=== PATIENT | female | born 1985 | race Caucasian/White ===

== ENCOUNTER 2018-09-06 00:14 | Emergency (ER) | payer OTHER ==
[2018-09-06 00:36] LABS: BILIRUBIN,URINE NEGATIVE (NEGATIVE); GLUCOSE, URINE (UA) NEGATIVE (NEGATIVE); KETONES,URINE (UA) NEGATIVE (NEGATIVE); LEUKOCYTE ESTERASE, URINE TRACE (NEGATIVE); NITRITE,URINE NEGATIVE (NEGATIVE); OCCULT BLOOD,URINE LARGE (NEGATIVE); PROTEIN,URINE NEGATIVE (NEGATIVE); UROBILINOGEN,URINE 0.2 (NORMAL) E.U./dL (NORMAL)
[2018-09-06 00:44] LABS: CLARITY,URINE SL. CLOUDY (CLEAR); HCG UR QUAL NEGATIVE
[2018-09-06 00:45] LABS: BACTERIA,URINE Few /HPF (None Seen); RBC,URINE TNTC /HPF (0-5); SQUAMOUS EPITHELIAL CELL,UR MANY Squamous (<= Few)
[2018-09-06] MEDS ORDERED: SULFAM/TRIM 800/160 Prepack 2 PO ONE (01:13)
--- NOTE | 2018-09-06 01:16 | ED Physician Documentation ---
PD HPI FEMALE - Stated complaint Stated Complaint: FEMALE - Chief complaint Chief Complaint: Abd Pain - History obtained from History obtained from: Patient - History of Present Illness Timing - onset: How many days ago (5) Timing - duration: Days (5) Timing - details: Gradual onset, Still present Associated symptoms: Pelvic pain, Vaginal bleeding Contributing factors: Sexually active [employer] History: Miscarriage(s) (1) Similar symptoms before: Has not had sx before Recently seen: Clinic - Additional information Additional information: 32-year-old female who reports that she had a miscarriage in July was cleared to go back and action with intercourse after her follow-up appointment 1 week ago. She indicates that she had intercourse 1 week ago and the following day felt bruised she has had persistence of the symptoms since and she is now begin to have some vaginal bleeding she passed a small pea-sized hard object. She has some suprapubic pain and she feels bloated. Review of Systems Constitutional: denies: Fever Eyes: denies: Decreased vision Ears: denies: Ear pain Nose: denies: Rhinorrhea / runny nose, Congestion Throat: denies: Sore throat Respiratory: denies: Cough GI: reports: Abdominal Pain. denies: Nausea, Vomiting : denies: Dysuria, Frequency Skin: denies: Rash Musculoskeletal: denies: Neck pain, Back pain, Extremity pain Neurologic: denies: Generalized weakness, Focal weakness, Numbness PD PAST MEDICAL HISTORY - Present Medications Home Medications: Ambulatory Orders Medication Instructions Recorded Confirmed Sulfamethoxazole/Trimethoprim 1 each PO BID #10 tablet 09/06/18 [Sulfamethoxazole-Tmp Ds Tablet] - Allergies Allergies/Adverse Reactions: Allergies Allergy/AdvReac Type Severity Reaction Status Date / Time No Known Drug Allergies Allergy Verified 09/06/18 00:22 PD ED PE NORMAL - Vitals Vital signs reviewed: Yes (hypertensive) - General General: Alert and oriented X 3, No acute distress, Well developed/nourished - HEENT HEENT: Atraumatic, PERRL, EOMI - Neck Neck: Supple, no meningeal sign, No bony TTP - Cardiac Cardiac: RRR, No murmur - Respiratory Respiratory: No respiratory distress, Clear bilaterally - Abdomen Abdomen: Soft, Other (minimal suprapubic tenderness) - Back Back: No CVA TTP, No spinal TTP, Other (There is minimal tenderness at the right costal margin cant make peylo out of this pain ) - Derm Derm: Normal color, Warm and dry, No rash - Extremities Extremities: No deformity, No edema - Neuro Neuro: No motor deficit, No sensory deficit Eye Opening: Spontaneous Motor: Obeys Commands Verbal: Oriented GCS Score: 15 - Psych Psych: Normal mood, Normal affect Results - Vitals Vitals: Vital Signs - 24 hr 09/06/18 00:16 Temperature 36.8 C Heart Rate 100 Respiratory 18 Rate Blood Pressure 143/85 H O2 Saturation 100 Oxygen O2 Source Room air - Labs Labs: Laboratory Tests 09/06/18 00:28 Urine Color YELLOW Urine Clarity SL. CLOUDY Urine pH 6.0 Ur Specific [place] 1.010 Urine Protein NEGATIVE Urine Glucose (UA) NEGATIVE Urine Ketones NEGATIVE Urine Occult Blood LARGE H Urine Nitrite NEGATIVE Urine Bilirubin NEGATIVE Urine Urobilinogen 0.2 (NORMAL) Ur Leukocyte Esterase TRACE H Urine RBC TNTC H Urine WBC 11-25 H Ur Squamous Epith Cells MANY Squamous H Urine Bacteria Few Ur Microscopic Review INDICATED Urine Culture Comments NOT INDICATED Urine HCG, Qual NEGATIVE PD MEDICAL DECISION MAKING - ED course Complexity details: reviewed results, re-evaluated patient, considered differential, d/w patient ED course: There are no old records for review here today. The patient is a young 32-year-old female with suprapubic cramping and vaginal bleeding 2 months after miscarriage. On evaluation of the urinary sediment she appears to have urinary tract infection. She is administered sulfamethoxazole trimethoprim. Departure - Departure Disposition: 01 Home, Self Care Clinical Impression: Urinary tract infection Qualifiers: Urinary tract infection type: acute cystitis Hematuria presence: with hematuria Qualified Code(s): N30.01 - Acute cystitis with hematuria Instructions: ED UTI Cystitis Female Follow-Up: Forest Gregg ARNP [Primary Care Provider] - Prescriptions: Sulfamethoxazole/Trimethoprim [Sulfamethoxazole-Tmp Ds Tablet] 1 each PO BID #10 tablet
[2018-09-06 01:22] VITALS: BP 132/90
== END 2018-09-06 01:49 | disposition home or self-care (01) ==
LOC: ED 00:14
DX: N30.01 Acute cystitis with hematuria (principal)
CPT/HCPCS: 80053; 81001; 81003; 81025; 83690; 85025; 87086; 99282; 99283

== ENCOUNTER 2019-12-14 19:22 | Emergency (ER) | payer OTHER ==
[2019-12-14 19:30] VITALS: BP 160/88
[2019-12-14 19:49] LABS: BASOPHILS % (AUTO) 0.5 %; EOSINOPHILS # (AUTO) 0.1 10^3/uL (0.0-0.7); EOSINOPHILS % (AUTO) 0.8 %; HGB - HEMOGLOBIN 14.1 g/dL (12.0-16.0); LYMPHOCYTES # (AUTO) 3.2 10^3/uL (1.5-3.5); LYMPHOCYTES % (AUTO) 36.4 %; MEAN CORPUSCULAR HEMOGLOBIN 30.3 pg (27.0-31.0); MEAN CORPUSCULAR HGB CONC 33.8 g/dL (32.0-36.0); MEAN CORPUSCULAR VOLUME 89.7 fL (81.0-99.0); MEAN PLATELET VOLUME 9.4 fL (7.9-10.8); MONOCYTES # (AUTO) 0.8 10^3/uL (0.0-1.0); MONOCYTES % (AUTO) 9.2 %; NEUTROPHILS # (AUTO) 4.6 10^3/uL (1.5-6.6); NEUTROPHILS % (AUTO) 52.9 %; PLT - PLATELET COUNT 222 10^3/uL (130-450); RED BLOOD COUNT 4.65 10^6/uL (4.20-5.40); RED CELL DISTRIBUTION WIDTH 12.9 % (12.0-15.0); WHITE BLOOD COUNT 8.7 x10^3/uL (4.8-10.8)
--- NOTE | 2019-12-14 19:50 | ED Physician Documentation ---
History of Present Illness - Stated complaint Stated Complaint: RT SIDE/BACK PX - Chief complaint Chief Complaint: Abd Pain - History obtained from History obtained from: Patient - History of Present Illness Timing: Prior to arrival, Other (began 3 days ago) Pain level max: 5 Pain level now: 2 Quality: sharp, throbbing Radiates to: right lower quadrant - Additonal information Additional information: 34 year old female here with 3 days of right flank pain that now radiates to the RLQ. no n/v/d. no constipation denies dysuria, hematuria. denies fevers pt has had similar about 3 years ago in [place] where a CT scan was completed and they thought she may have stones. PSH: inguinal hernia repair in infancy pmh: negative meds: allergy meds only. no ocp Review of Systems Constitutional: denies: Fever, Chills Nose: denies: Rhinorrhea / runny nose Throat: denies: Sore throat Cardiac: denies: Chest pain / pressure, Palpitations Respiratory: denies: Dyspnea, Cough GI: reports: Abdominal Pain. denies: Nausea, Vomiting, Constipation, Diarrhea, Hematemesis, Bloody / black stool : reports: LMP (11/23/19). denies: Dysuria, Hesitancy, Unable to Void, Hematuria Musculoskeletal: reports: Reviewed and negative Neurologic: reports: Reviewed and negative Endocrine: denies: Polydypsia, Polyuria PD PAST MEDICAL HISTORY - Present Medications Home Medications: Ambulatory Orders Medication Instructions Recorded Confirmed Sulfamethoxazole/Trimethoprim 1 each PO BID #10 tablet 09/06/18 [Sulfamethoxazole-Tmp Ds Tablet] - Allergies Allergies/Adverse Reactions: Allergies Allergy/AdvReac Type Severity Reaction Status Date / Time azithromycin [From Zithromax] Allergy Respiratory Verified 12/14/19 19:26 codeine Allergy Emesis Verified 12/14/19 19:26 PD ED PE NORMAL - General General: Alert and oriented X 3, No acute distress, Well developed/nourished - HEENT HEENT: Atraumatic, PERRL - Neck Neck: No adenopathy - Cardiac Cardiac: No murmur - Respiratory Respiratory: No respiratory distress, Clear bilaterally - Abdomen Abdomen: Normal bowel sounds, Other (mild right CVA tenderness with pain in the righ tflank. negative murphys; negative mcburneys. 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 Results - Vitals Vitals: Vital Signs - 24 hr 12/14/19 19:26 Temperature 36.5 C Heart Rate 118 H Respiratory 16 Rate Blood Pressure 160/88 H O2 Saturation 99 Oxygen O2 Source Room air - Labs Labs: Laboratory Tests 12/14/19 12/14/19 12/14/19 19:43 19:43 19:45 WBC 8.7 RBC 4.65 Hgb 14.1 Hct 41.7 MCV 89.7 MCH 30.3 MCHC 33.8 RDW 12.9 Plt Count 222 MPV 9.4 Neut # (Auto) 4.6 Lymph # (Auto) 3.2 Tyrrell # (Auto) 0.8 Eos # (Auto) 0.1 Baso # (Auto) 0.0 Absolute Nucleated RBC 0.00 Nucleated RBC % 0.0 Sodium 138 Potassium 3.1 L Chloride 103 Carbon Dioxide 26 Anion Gap 9.0 BUN 14 Creatinine 0.8 Estimated GFR (MDRD) 83 L Glucose 98 Calcium 9.0 Total Bilirubin 0.6 AST 40 ALT 48 Alkaline Phosphatase 68 Total Protein 7.7 Albumin 4.2 Globulin 3.5 Albumin/Globulin Ratio 1.2 Lipase 32 Urine Color YELLOW Urine Clarity CLEAR Urine pH 7.0 Ur Specific [place] <=1.005 Urine Protein NEGATIVE Urine Glucose (UA) NEGATIVE Urine Ketones NEGATIVE Urine Occult Blood NEGATIVE Urine Nitrite NEGATIVE Urine Bilirubin NEGATIVE Urine Urobilinogen 0.2 (NORMAL) Ur Leukocyte Esterase NEGATIVE Ur Microscopic Review NOT INDICATED Urine Culture Comments NOT INDICATED Urine HCG, Qual 12/14/19 19:45 WBC RBC Hgb Hct MCV MCH MCHC RDW Plt Count MPV Neut # (Auto) Lymph # (Auto) [place] # (Auto) Eos # (Auto) Baso # (Auto) Absolute Nucleated RBC Nucleated RBC % Sodium Potassium Chloride Carbon Dioxide Anion Gap BUN Creatinine Estimated GFR (MDRD) Glucose Calcium Total Bilirubin AST ALT Alkaline Phosphatase Total Protein Albumin Globulin Albumin/Globulin Ratio Lipase Urine Color Urine Clarity Urine pH Ur Specific [place] <=1.005 Urine Protein Urine Glucose (UA) Urine Ketones Urine Occult Blood Urine Nitrite Urine Bilirubin Urine Urobilinogen Ur Leukocyte Esterase Ur Microscopic Review Urine Culture Comments Urine HCG, Qual NEGATIVE - Rads (name of study) CT abd Radiology: Final report received, Other (IMPRESSION: Mildly prominent cystic right adneza; negative for stone or acute appendicitis. no e/o acute abdominal process) PD MEDICAL DECISION MAKING - ED course Complexity details: reviewed results, re-evaluated patient, considered differential, d/w patient ED course: 34 year old female presents to the ED for evaluation of right flank/RLQ abdominal pain - CT non contrast revealed no e/o renal stones or acute appy. mildly prominent cystic right adnexa noted. - findings discussed with pt. Recommend close f/u with pcp to have pelvic US ordered as an outpatient - pain is well controlled for patient and she declined analgesia in the ED - Labs reviewed. mildly low potassium without symptoms. no leukocytosis. Urine evaluated and no s/s infection. defer further abx - red flags and emergent return precautions discussed with patient Departure - Departure Disposition: 01 Home, Self Care Clinical Impression: Adnexal cyst, Hypokalemia Condition: Stable Record reviewed to determine appropriate education?: Yes Instructions: Abdominal Pain Follow-Up: Forest Gregg ARNP [Primary Care Provider] - Comments: Marla, I hope you feel better soon. Your labs looked pretty normal with the exception of a low potassium. try eating potassium rich foods for the next week and follow up with your primary provider The CT scan showed no signs of appendicitis or kidney stones. however you do have a cyst on your adnexa. Your primary doctor may want to order pelvic ultrasound imaging for you as an outpatient it is okay to take motrin or tylenol over the counter for pain if the pain returns, is suddenly severe, you have fevers or uncontrolled vomiting or any other worsening symptoms, please return for a second evaluation.
[2019-12-14 19:54] LABS: BILIRUBIN,URINE NEGATIVE (NEGATIVE); GLUCOSE, URINE (UA) NEGATIVE (NEGATIVE); KETONES,URINE (UA) NEGATIVE (NEGATIVE); LEUKOCYTE ESTERASE, URINE NEGATIVE (NEGATIVE); NITRITE,URINE NEGATIVE (NEGATIVE); OCCULT BLOOD,URINE NEGATIVE (NEGATIVE); PROTEIN,URINE NEGATIVE (NEGATIVE); UROBILINOGEN,URINE 0.2 (NORMAL) E.U./dL (NORMAL)
[2019-12-14 19:55] LABS: CLARITY,URINE CLEAR (CLEAR)
[2019-12-14 19:57] LABS: HCG UR QUAL NEGATIVE
[2019-12-14 20:04] LABS: ALBUMIN 4.2 g/dL (3.2-5.5); ALBUMIN/GLOBULIN RATIO 1.2 (1.0-2.2); BILIRUBIN,TOTAL 0.6 mg/dL (0.2-1.0); CREATININE 0.8 mg/dL (0.4-1.0); TOTAL PROTEIN 7.7 g/dL (6.7-8.2)
--- NOTE | 2019-12-14 20:24 | CT Report ---
Reason: right flank pain radiating to the RLQ Procedure Date: 12/14/2019 Accession Number: [id number] / [id number] Procedure: CT - Abdomen/Pelvis WO CPT Code: Final Report FULL RESULT: PROCEDURE: Abdomen/Pelvis WO INDICATIONS: right flank pain radiating to the RLQ TECHNIQUE: Noncontrast 5 mm thick sections acquired from the diaphragms to the symphysis. 5 mm coronal and sagittal reformats were then performed. For radiation dose reduction, the following was used: automated exposure control, adjustment of mA and/or kV according to patient size. COMPARISON: None. FINDINGS: Image quality: Excellent. ABDOMEN: Lung bases: Lung bases are clear. Heart size is normal. Solid organs: Liver and spleen are normal in size. Gallbladder is contracted Pancreas is normal in contours. No adrenal nodules. Kidneys are normal in size, without hydronephrosis or nephrolithiasis. Peritoneum and bowel: Unenhanced bowel loops demonstrate normal wall thickness and caliber. No free fluid or air. Normal appendix. Nodes and vessels: No retroperitoneal or mesenteric adenopathy by size criteria. Aorta and inferior vena cava are normal in caliber. Miscellaneous: No ventral hernias. PELVIS: Genitourinary: Bladder wall thickness is normal. Miscellaneous: No inguinal hernias or adenopathy. Mildly prominent cystic right adnexa. Bones: No suspicious bony lesions. No vertebral body compression fractures. IMPRESSION: 1. Mildly prominent cystic right adnexa. 2. Normal appendix. No evidence of renal stone or ureteral stone. 3. No evidence of acute abdominal process. Reviewed by: Jesús Tomlinson MD on 12/14/2019 8:23 PM PDT Approved by: Jesús Tomlinson MD on 12/14/2019 8:23 PM PDT Station ID: [id number]
== END 2019-12-14 21:05 | disposition home or self-care (01) ==
LOC: ED 19:22
DX: N83.8 Other noninflammatory disorders of ovary, fallopian tube and broad ligament (principal); E87.6 Hypokalemia
CPT/HCPCS: 36415; 74176; 80053; 81001; 81003; 81025; 83690; 85025; 87086; 99284

== ENCOUNTER 2020-05-17 11:46 | Outpatient (CLI) | payer OTHER | END 2020-05-17 11:47 | disposition critical access hospital (66) | LOC: MERGE 11:46 → EMS 11:46 | PROVIDERS: ATTEND Surgery | DX: O26.90 Pregnancy related conditions, unspecified, unspecified trimester (principal); R55 Syncope and collapse | CPT/HCPCS: A0425; A0427 ==

== ENCOUNTER 2020-05-17 12:03 | Emergency (ER) | payer OTHER ==
[2020-05-17 12:24] LABS: BILIRUBIN,URINE NEGATIVE (NEGATIVE); CLARITY,URINE CLEAR (CLEAR); GLUCOSE, URINE (UA) NEGATIVE (NEGATIVE); KETONES,URINE (UA) NEGATIVE (NEGATIVE); LEUKOCYTE ESTERASE, URINE NEGATIVE (NEGATIVE); NITRITE,URINE NEGATIVE (NEGATIVE); OCCULT BLOOD,URINE NEGATIVE (NEGATIVE); PROTEIN,URINE NEGATIVE (NEGATIVE); UROBILINOGEN,URINE 0.2 (NORMAL) E.U./dL (NORMAL)
[2020-05-17 12:35] LABS: BASOPHILS % (AUTO) 0.2 %; EOSINOPHILS % (AUTO) 0.4 %; HGB - HEMOGLOBIN 11.7 g/dL (12.0-16.0); LYMPHOCYTES # (AUTO) 1.4 10^3/uL (1.5-3.5); LYMPHOCYTES % (AUTO) 13.3 %; MEAN CORPUSCULAR HEMOGLOBIN 31.2 pg (27.0-31.0); MEAN CORPUSCULAR HGB CONC 34.2 g/dL (32.0-36.0); MEAN CORPUSCULAR VOLUME 91.2 fL (81.0-99.0); MEAN PLATELET VOLUME 9.4 fL (7.9-10.8); MONOCYTES # (AUTO) 0.6 10^3/uL (0.0-1.0); MONOCYTES % (AUTO) 5.3 %; NEUTROPHILS # (AUTO) 8.4 10^3/uL (1.5-6.6); PLT - PLATELET COUNT 213 10^3/uL (130-450); RED BLOOD COUNT 3.75 10^6/uL (4.20-5.40); WHITE BLOOD COUNT 10.5 x10^3/uL (4.8-10.8)
--- NOTE | 2020-05-17 12:38 | ED Physician Documentation ---
PD HPI SYNCOPE - Stated complaint Stated Complaint: SYNCOPE - Chief complaint Chief Complaint: Neuro - History obtained from History obtained from: Patient - Additional information Additional information: 34-year-old G3, P1 at 26 weeks gestation had a syncopal episode today. She did have this issue with the previous which she brought to term. She felt presyncopal for about 15 seconds and went to a sitting position and then passed out in the chair for about a minute without injury. There is no associated chest pain or trouble breathing. She feels normal now. No fluid loss or crampi ng or bleeding. Review of Systems Constitutional: denies: Fever, Chills Cardiac: denies: Chest pain / pressure, Palpitations Respiratory: denies: Dyspnea, Cough PD PAST MEDICAL HISTORY - Past Medical History Past Medical History: No - Past Surgical History Past Surgical History: No - Allergies Allergies/Adverse Reactions: Allergies Allergy/AdvReac Type Severity Reaction Status Date / Time azithromycin Allergy Unknown Verified 05/17/20 12:13 codeine Allergy Unknown Verified 05/17/20 12:13 - Social History Does the pt smoke?: No Smoking Status: Never smoker Does the pt drink ETOH?: No Does the pt have substance abuse?: No PD ED PE NORMAL - Vitals Vital signs reviewed: Yes - General General: Alert and oriented X 3, No acute distress - HEENT HEENT: PERRL, EOMI - Neck Neck: Supple, no meningeal sign, No bony TTP - Cardiac Cardiac: RRR, No murmur - Respiratory Respiratory: No respiratory distress, Clear bilaterally - Abdomen Abdomen: Other (Gravid uterus, nontender belly) - Extremities Extremities: No edema, No calf tenderness / cord - Neuro Neuro: Alert and oriented X 3, Normal speech Results - Vitals Vitals: Vital Signs - 24 hr 05/17/20 12:13 Temperature 36.2 C L Heart Rate 86 Respiratory 18 Rate Blood Pressure 127/77 O2 Saturation 100 Oxygen O2 Source Room air - EKG (time done) 1226 Rate: Rate (enter#) (94) Rhythm: NSR [place]: Normal Intervals: Normal [place] QRS: Normal Ischemia: Normal ST segments Computer interpretation: Agree with computer - Labs Labs: Laboratory Tests 05/17/20 05/17/20 05/17/20 12:10 12:29 12:29 WBC 10.5 RBC 3.75 L Hgb 11.7 L Hct 34.2 L MCV 91.2 MCH 31.2 H MCHC 34.2 RDW 14.0 Plt Count 213 MPV 9.4 Neut # (Auto) 8.4 H Lymph # (Auto) 1.4 L [place] # (Auto) 0.6 Eos # (Auto) 0.0 Baso # (Auto) 0.0 Absolute Nucleated RBC 0.00 Nucleated RBC % 0.0 Sodium 135 Potassium 3.6 Chloride 101 Carbon Dioxide 22 Anion Gap 12.0 BUN 14 Creatinine 0.6 Estimated GFR (MDRD) 115 Glucose 97 Calcium 9.0 Total Bilirubin 0.6 AST 23 ALT 22 Alkaline Phosphatase 62 Total Protein 6.8 Albumin 3.2 Globulin 3.6 Albumin/Globulin Ratio 0.9 L Lipase 22 Urine Color YELLOW Urine Clarity CLEAR Urine pH 6.0 Ur Specific [place] 1.015 Urine Protein NEGATIVE Urine Glucose (UA) NEGATIVE Urine Ketones NEGATIVE Urine Occult Blood NEGATIVE Urine Nitrite NEGATIVE Urine Bilirubin NEGATIVE Urine Urobilinogen 0.2 (NORMAL) Ur Leukocyte Esterase NEGATIVE Ur Microscopic Review NOT INDICATED Urine Culture Comments NOT INDICATED PD MEDICAL DECISION MAKING - ED course ED course: This is a young woman who is 26 weeks who presents with syncope in , nothing in the history to suggest a malignant cause. Will do some monitoring and check some blood work. Discussed with her the need to lay left recumbent when supine and to get into this position if she feels presyncopal. Also push fluids. 34-year-old woman with premonition of syncope in , recurrent issue for her. Work-up here was unremarkable. NST per OB RN was reassuring. Spoke with Dr. Dias who felt this this was also benign. Departure - Departure Disposition: 01 Home, Self Care Clinical Impression: Syncope Qualifiers: Syncope type: unspecified Qualified Code(s): R55 - Syncope and collapse Qualifiers: Weeks of gestation: 26 weeks Qualified Code(s): Z3A.26 - 26 weeks gestation of Condition: Good Record reviewed to determine appropriate education?: Yes Instructions: ED Fainting Unkn Cause Comments: Drink plenty of fluids, follow-up with your OB as scheduled. Remember if you feel dizzy to lay down on your left side. Return if worsening.
[2020-05-17 12:49] LABS: ALBUMIN 3.2 g/dL (3.2-5.5); ALBUMIN/GLOBULIN RATIO 0.9 (1.0-2.2); BILIRUBIN,TOTAL 0.6 mg/dL (0.2-1.0); CREATININE 0.6 mg/dL (0.4-1.0); TOTAL PROTEIN 6.8 g/dL (6.7-8.2)
[2020-05-17 14:52] VITALS: BP 115/71
--- NOTE | 2020-05-20 09:48 | PROCEDURE REPORT ---
- HPI Diagnosis/Indication for NST: Other (ER visit for syncope) Current EDU 08/30/20 Gestation 25 Weeks and 0 Days 2 Para 1 Vital Signs Temperature 97.2 F L 05/17/20 12:13 Heart Rate 86 05/17/20 12:13 Respiratory Rate 18 05/17/20 12:13 Blood Pressure 127/77 05/17/20 12:13 O2 Saturation 100 05/17/20 12:13 Temperature 97.2 F L 05/17/20 12:13 Heart Rate 86 05/17/20 14:52 Respiratory Rate 15 05/17/20 14:52 Blood Pressure 115/71 05/17/20 14:52 O2 Saturation 100 05/17/20 14:52 - NST Procedure NST Procedure Start Date 05/17/20 Start Time 13:00 Stop Time 13:30 Vibroacoustic Stimulation Used No Patient States Movement Yes - Results and Plan Findings/Impression: See ER documentation. Category 1 NST [place] neg Follow up in OB clinic for next scheduled appointment.
== END 2020-05-17 14:57 | disposition home or self-care (01) ==
LOC: EDBD → MERGE 12:03 → ED 12:03
DX: O99.891 Other specified diseases and conditions complicating pregnancy (principal); R55 Syncope and collapse; Z3A.26 26 weeks gestation of pregnancy
CPT/HCPCS: 36415; 80053; 81001; 81003; 83690; 85025; 87086; 93005; 99282

== ENCOUNTER 2020-08-10 08:00 | Outpatient (CLI) | payer OTHER | END 2020-08-10 23:59 | disposition home or self-care (01) | LOC: LAB 08:00 | PROVIDERS: ATTEND Advanced Practice Midwife | DX: Z34.90 Encounter for supervision of normal pregnancy, unspecified, unspecified trimester (principal); Z36.85 Encounter for antenatal screening for Streptococcus B | CPT/HCPCS: 87797 ==

== ENCOUNTER 2020-08-17 16:49 | Outpatient (CLI) | payer OTHER ==
[2020-08-17 17:01] VITALS: BP 138/87
[2020-08-17 17:17] LABS: RUPTURE OF MEMBRANES PLUS NEGATIVE (NEGATIVE)
--- NOTE | 2020-08-18 10:19 | PROVIDER PROGRESS NOTE ---
- HPI Chief Complaint: Leakage of vaginal fluid Current : Current EDU 08/30/20 Gestation 38 Weeks and 1 Days 3 Para 1 Vital Signs Temperature 36.9 C 08/17/20 16:45 Heart Rate 108 H 08/17/20 16:45 Respiratory Rate 20 08/17/20 16:45 Blood Pressure 138/87 H 08/17/20 16:45 O2 Saturation 100 08/17/20 16:45 Temperature 36.9 C 08/17/20 16:45 Heart Rate 108 H 08/17/20 16:45 Respiratory Rate 20 08/17/20 16:45 Blood Pressure 138/87 H 08/17/20 16:45 O2 Saturation 100 08/17/20 16:45 - Exam Marla is a 34yo at 38.1wks who presented with leakage of fluid Denies ctx, VB, endorses movement ROM+- negative FHTs difficult to assess r/t marked activity both reported by Marla and palpated by nursing Prolonged monitoring until activity wnl NST perform date: 08/17/2020 NST read date: 08/17/2020 Assessment 34yo at 38.1wks gestation who is negative for ROM NST: Reactive Plan: Discharge home with regular labor precautions Continue with routine care Final Diagnosis: Spontaneous rupture of membranes- Rule Out - Procedures OB Procedure Performed: NST NST Procedure: NST Procedure Start Date 08/17/20 Start Time 19:23 Stop Time 19:55 Vibroacoustic Stimulation Used No Patient States Movement Yes
== END 2020-08-17 20:15 | disposition home or self-care (01) ==
LOC: WFO 16:49 → FBP 16:50 → WFO 20:15
PROVIDERS: ATTEND Advanced Practice Midwife
DX: Z34.83 Encounter for supervision of other normal pregnancy, third trimester (principal); Z3A.38 38 weeks gestation of pregnancy
CPT/HCPCS: 59025; 84112; 99213

== ENCOUNTER 2020-08-23 08:00 | Outpatient (CLI) | payer OTHER ==
[2020-08-23 09:50] LABS: HGB - HEMOGLOBIN 12.8 g/dL (12.0-16.0); MEAN CORPUSCULAR HEMOGLOBIN 31.8 pg (27.0-31.0); MEAN CORPUSCULAR HGB CONC 33.5 g/dL (32.0-36.0); MEAN CORPUSCULAR VOLUME 94.8 fL (81.0-99.0); MEAN PLATELET VOLUME 10.5 fL (7.9-10.8); RED BLOOD COUNT 4.03 10^6/uL (4.20-5.40); RED CELL DISTRIBUTION WIDTH 13.8 % (12.0-15.0); WHITE BLOOD COUNT 8.7 x10^3/uL (4.8-10.8)
[2020-08-23 10:01] LABS: ALBUMIN 3.3 g/dL (3.2-5.5); ALBUMIN/GLOBULIN RATIO 0.9 (1.0-2.2); BILIRUBIN,TOTAL 0.6 mg/dL (0.2-1.0); CALCIUM 9.5 mg/dL (8.5-10.3); CREATININE 0.6 mg/dL (0.4-1.0); TOTAL PROTEIN 6.8 g/dL (6.7-8.2)
[2020-08-23 11:16] LABS: TOTAL PROTEIN,URINE TIMED < 6 mg/dL
== END 2020-08-23 23:59 | disposition home or self-care (01) ==
LOC: LAB 08:00
PROVIDERS: ATTEND Advanced Practice Midwife
DX: R03.0 Elevated blood-pressure reading, without diagnosis of hypertension (principal)
CPT/HCPCS: 36415; 80053; 82570; 84156; 85027

== ENCOUNTER 2020-08-23 19:48 | Outpatient (CLI) | payer OTHER ==
[2020-08-23 20:23] VITALS: BP 116/73
--- NOTE | 2020-08-23 21:12 | PROVIDER PROGRESS NOTE ---
- HPI Chief Complaint: Labor Check Current : Current EDU 08/30/20 Gestation 39 Weeks and 0 Days 3 Para 1 Vital Signs Temperature 37.3 C 08/23/20 20:05 Heart Rate 120 H 08/23/20 20:05 Respiratory Rate 20 08/23/20 20:05 Blood Pressure 117/65 08/23/20 20:05 O2 Saturation 99 08/23/20 20:05 Temperature 37.3 C 08/23/20 20:05 Heart Rate 120 H 08/23/20 20:05 Respiratory Rate 20 08/23/20 20:05 Blood Pressure 116/73 08/23/20 20:21 O2 Saturation 99 08/23/20 20:05 - Procedures OB Procedure Performed: NST NST Procedure: NST Procedure Start Date 08/23/20 Start Time 19:56 Stop Time 20:30 Vibroacoustic Stimulation Used No Patient States Movement Yes Service Date of procedure: 08/23/20 - Plan Plan: S: Marla is a 34yo @ 39.0wks gestation who presents to [facility] with c/o contractions every 3-5 minutes lasting a minute for the past hour. She states she had her membranes swept in the office today and experienced some vaginal bleeding following her visit but this has since decreased and is only now having some brown-amy discharge. She denies leakage of fluid. She reports +FM. Today in the office her BP was slightly elevated. She completed labs which were WNL. She denies BRAVO, visual disturbances, RUQ or epigastric pain. O: BP 130s/80s SVE 1-2/30/-3, posterior. Vertex. This examination is unchanged from today's office visit. Patient expresses desire to labor at home rather than wait to repeat SVE. NST performed 08/23/2020 NST read 08/23/2020 NST meet criteria for reactivity. FHR baseline 130s, moderate variability, + accels, no decels Contractions palpate mild every 5-7 minutes lasting 30-40 seconds with soft rest ing tone. A: 34yo @ 39.0wks gestation False labor >37wks gestation FHR Category I P: Patient released home with precautions. She has emergency contact number. supportive. She denies further questions or concerns at this time. FINAL DIAGNOSIS: False labor >37wks gestation
== END 2020-08-23 20:55 | disposition home or self-care (01) ==
LOC: WFO 19:48 → FBP 19:50 → WFO 20:55
PROVIDERS: ATTEND Nurse Practitioner Obstetrics & Gynecology
DX: O47.1 False labor at or after 37 completed weeks of gestation (principal); Z3A.39 39 weeks gestation of pregnancy
CPT/HCPCS: 36415; 59025; 80053; 82570; 84156; 85027; 99212

== ENCOUNTER 2020-08-26 04:46 | Inpatient (IN) | payer OTHER ==
[2020-08-26] MEDS ORDERED: TRANEXAMIC ACID IN NACL 1,000 MG/100 ML BAG IV PRN (05:08)
[2020-08-26] MEDS ORDERED: OXYTOCIN 10 UNIT/ML VIAL IM PRN (05:08)
[2020-08-26] MEDS ORDERED: LIDOCAINE-MPF 1% 30 ML VIAL ID PRN (05:08)
[2020-08-26] MEDS ORDERED: METHYLERGONOVINE 0.2 MG/ML VIAL IM PRN (05:08)
[2020-08-26] MEDS ORDERED: SODIUM CHLORIDE FLUSH 0.9% 10 ML SYRINGE IVP PRN (05:08)
[2020-08-26] MEDS ORDERED: OXYTOCIN/SODIUM CHLORIDE 500 ML IV PRN (05:08)
[2020-08-26] MEDS ORDERED: CARBOPROST TROMETHAMINE 250 MCG/ML AMP IM PRN (05:08)
[2020-08-26] MEDS ORDERED: miSOPROStoL 200 MCG TABLET BC PRN (05:08)
[2020-08-26 05:43] LABS: BASOPHILS % (AUTO) 0.2 %; EOSINOPHILS # (AUTO) 0.1 10^3/uL (0.0-0.7); EOSINOPHILS % (AUTO) 0.6 %; LYMPHOCYTES # (AUTO) 1.8 10^3/uL (1.5-3.5); LYMPHOCYTES % (AUTO) 19.3 %; MEAN CORPUSCULAR HEMOGLOBIN 31.6 pg (27.0-31.0); MEAN CORPUSCULAR HGB CONC 33.8 g/dL (32.0-36.0); MEAN CORPUSCULAR VOLUME 93.4 fL (81.0-99.0); MEAN PLATELET VOLUME 10.8 fL (7.9-10.8); MONOCYTES # (AUTO) 0.9 10^3/uL (0.0-1.0); MONOCYTES % (AUTO) 9.4 %; NEUTROPHILS # (AUTO) 6.3 10^3/uL (1.5-6.6); NEUTROPHILS % (AUTO) 69.9 %; PLT - PLATELET COUNT 189 10^3/uL (130-450); RED CELL DISTRIBUTION WIDTH 13.7 % (12.0-15.0); WHITE BLOOD COUNT 9.1 x10^3/uL (4.8-10.8)
[2020-08-26] MEDS: LACTATED RINGERS 1,000 ML IV SCH ×3 (06:05→18:43)
--- NOTE | 2020-08-26 07:53 | HISTORY & PHYSICAL EXAMINATION ---
Admit History - Visit Reason Visit Reason: Contractions, Membranes rupture - : 3 Parity: 1 Premature: 0 Ectopic: 0 : 1 Care: positive: [facility] Risk/History: positive: None Complications This : positive: None Smoking Status: Never smoker - Mother's Labs Mother's Blood Type: positive: O Mother's RH: positive: Positive GBS: positive: Group B Step Negative Rubella Status: positive: Immune Meds/Allgy - Home Medications Home Medications: Ambulatory Orders Medication Instructions Recorded Confirmed Sulfamethoxazole/Trimethoprim 1 each PO BID #10 tablet 09/06/18 [Sulfamethoxazole-Tmp Ds Tablet] - Allergies Allergies/Adverse Reactions: Allergies Allergy/AdvReac Type Severity Reaction Status Date / Time azithromycin [From Zithromax] Allergy Respiratory Verified 05/17/20 15:26 codeine Allergy Emesis Verified 05/17/20 15:26 Review of Systems - Constitutional Constitutional: denies: Fatigue, Fever, Chills - Eyes Eyes: denies: Blurred vision, Spots in vision, Dipolpia - Cardiovascular Cariovascular: denies: Chest pain - Respiratory Respiratory: denies: Cough, Wheezing, SOB at rest - Gastrointestinal Gastrointestinal: denies: Constipation, Diarrhea, Change in bowel habits, Nausea, Vomiting - Genitourinary Genitourinary: denies: Dysuria - Integumentary Integumentary: denies: Rash, Pruritis - Neurological Neurological: denies: Headache Physical - Abdominal Exam Vital Signs: Temp Pulse Resp BP Pulse Ox 36.7 C 88 18 118/80 08/26/20 06:11 08/26/20 06:11 08/26/20 06:11 08/26/20 06:11 Contraction Frequency (min/apart): intermittent, irregular Contraction Intensity: positive: Mild Uterine Resting Tone: positive: Soft - Monitoring Heart Rate Baseline: 130 Strip Review: positive: Category I - Presentation Presentation: positive: Vertex - Vaginal Exam Membranes: positive: Membranes ruptured Dilation (in cm): 1 Effacement (%): 50 Station: positive: -3 Cervical Position: positive: Posterior - Speculum Exam Speculum Exam Performed: positive: No Findings: positive: Gross leak Plan for Labor - Plan For Labor I expect patient to be DC'd or transferred within 96 hours.: Yes Plan for Labor: Marla is a 34yo @ 39.3wks gestation by LMP c/w 8.1wk U/S who presents to [facility] with c/o contractions which began at approximately 0300 this morning. She states it started with a 45 minute long cramp in her left side for which she took Tylenol and it then resolved. She then began to experience regular and uncomfortable contractions and she decided to present for evaluation. Upon arrival to the unit she grossly ruptured her membranes spontaneously and it was noted to be a moderate amount of clear fluid. Patient has continued to leak clear fluid since that time. She denies vaginal bleeding and reports +FM. She has been a patient of [facility] since her transfer of care from [facility] at 27wks gestation. She has received consistent care through the duration of her which has remained uncomplicated. She will be admitted to [facility] for active management. She is supported by her . Dating criteria: LMP 11/24/2019 Initial ultrasound 01/19/2021 @ 8.1wks c/w LMP dating Serial exams - agree OB Hx: G1: 11/04/2008, 39wks gestation , epidural, Female, 7lb1oz. 3rd degree perineal laceration G2: 07/14/2018 @ 8wks gestation G3: current PMHx: no significant Surgical Hx: Browning teeth (2016); Inguinal hernia repair (1986) Social Hx: Never smoker, no ETOH or IVDA. Family Hx: Heart disease- father course: Initial U/S: 01/20/2020 @ 8.1wks c/w LMP dating O pos/Rubella immune VZV: immune Genetic testing: CF neg; Serum integrated screen 2- negative FAS: 04/14/2020 WNl. Anterior placenta, no previa. BLADE WNL. Cervix close.d 3VC. Glucola 102 Influenza: 04/22/2020 TDAP 06/05/2020 GBS at 37.1 weeks NEG HSV: denies self or partner Breast pump Rx provided MOD: Anticipate ; Daughter Desirae; Expecting BOY -Jas; attempt (did not with her first but desires to attempt with this baby) Has history of scoliosis and would like early epidural access placement. pp contraception: has never used. Took ten years to get . considering vasectomy. Can't use estrogen containing BC because she reports history of arm going numb and provider telling her she "almost had a stroke." pap: 08/23/2019 WNL Physical Exam: Normocephalic, atraumatic Heart RRR w/o M/G/R Lungs CTAB Abdomen gravid, soft, nontender EFW 3600g SVE 1/50/-3, posterior Grossly ruptured membranes - clear fluid FHR baseline 130s, moderate variability, + accels, no decels Contractions palpate mild, intermittently Bilateral LE's trace edema Mood is good Assessment: 34yo @ 39.3wks gestation by LMP c/w 8.1wk U/S SROM x 2.5 hours FHR Category I GBS neg Plan: Initiate pitocin for augmentation of labor with titration per protocol Continuous monitoring Anesthesia notified for placement of epidural. Pt desires to wait to initiate pain medication until she is more uncomfortable Encouraged ambulation and position changes. Anticipate Reviewed plan of care with pt, and labor RN at the bedside who are all in agreement with above plan, verbalized understanding and deny further questions or concerns at this time.
[2020-08-26] MEDS ORDERED: OXYTOCIN/SODIUM CHLORIDE 500 ML IV SCH (08:00)
[2020-08-26] MEDS ORDERED: SODIUM CHLORIDE FLUSH 0.9% 10 ML SYRINGE IVP SCH (09:00)
[2020-08-26] MEDS ORDERED: BUPIVACAINE 0.25% PF 10 ML VIAL ONE (10:22)
[2020-08-26] MEDS ORDERED: ROPIVACAINE 0.2% 200 MG/100 ML BAG EP ONE (10:22)
[2020-08-26] MEDS ORDERED: fentaNYL 100 MCG/2 ML VIAL ONE (10:22)
[2020-08-26] MEDS ORDERED: METOCLOPRAMIDE 10 MG/2 ML VIAL IVP PRN (11:06)
[2020-08-26] MEDS ORDERED: NALBUPHINE 10 MG/ML AMP IVP PRN (11:06)
[2020-08-26] MEDS ORDERED: ePHEDrine 50 MG/ML VIAL IVP PRN (11:06)
[2020-08-26] MEDS ORDERED: diphenhydrAMINE INJ 50 MG/ML VIAL IVP PRN (11:06)
[2020-08-26] MEDS ORDERED: NALOXONE 0.4 MG/ML VIAL IVP PRN (11:06)
[2020-08-26] MEDS ORDERED: ROPIVACAINE 0.2% 200 MG/100 ML BAG EP PRN (11:06)
[2020-08-26] MEDS ORDERED: ONDANSETRON 4 MG/2 ML VIAL IVP PRN (11:06)
--- NOTE | 2020-08-26 11:06 | ANESTHESIA ---
Pre-Anesthesia VS, & Labs - Diagnosis active labor - Procedure labor epidural Vital Signs: Temp Pulse Resp BP Pulse Ox 36.7 C 90 16 100/67 99 08/26/20 08:20 08/26/20 08:20 08/26/20 08:20 08/26/20 08:20 08/26/20 08:20 Height: 5 ft 4 in - Is Patient ?: Yes - Lab Results Current Lab Results: Laboratory Tests 08/26/20 05:20: WBC 9.1, RBC 3.80 L, Hgb 12.0, Hct 35.5 L, MCV 93.4, MCH 31.6 H, MCHC 33.8, RDW 13.7, Plt Count 189, MPV 10.8, Neut # (Auto) 6.3, Lymph # (Auto) 1.8, [place] # (Auto) 0.9, Eos # (Auto) 0.1, Baso # (Auto) 0.0, Absolute Nucleated RBC 0.02, Nucleated RBC % 0.2 08/26/20 05:20: Blood Type O POSITIVE, Antibody Screen NEGATIVE Lab results reviewed: Yes Fish Bones: 08/26/20 05:20 Home Medications and Allergies Active Medications Carboprost Tromethamine (Carboprost Tromethamine 250 Mcg/Ml Amp) 250 mcg IM Q15M PRN PRN Reason: Step 4: Hemorrhage protocol Stop: 08/31/20 05:09 Lactated Ringer's (Lr) 1,000 mls @ 150 mls/hr IV .Q6H40M [facility] Last Admin: 08/26/20 06:05 Dose: 150 mls/hr Documented by: Oxytocin/Sodium Chloride (Pitocin/Sodium Chloride) 500 mls @ 999 mls/hr IV PRN PRN; Protocol PRN Reason: POST- HEMORR PREVENTION Stop: 08/31/20 05:09 Tranexamic Acid (Tranexamic 1,000 Mg/100ml-Nacl) 1,000 mg in 100 mls @ 600 mls/hr IV .ONCE PRN PRN Reason: EBL >1200mL and within 3hr Stop: 08/31/20 05:09 Oxytocin/Sodium Chloride (Pitocin/Sodium Chloride) 500 mls @ 1 mls/hr IV TITR NICOLE; Protocol Last Admin: 08/26/20 09:25 Dose: 1 milliunit/min, 1 mls/hr Documented by: Lidocaine HCl (Lidocaine-Mpf 1% 30 Ml Vial) 30 ml ID .ONCE PRN PRN Reason: PERINEAL REPAIR Stop: 08/31/20 05:09 Methylergonovine Maleate (Methylergonovine 0.2 Mg/Ml Vial) 0.2 mg IM .ONCE PRN PRN Reason: Step 2: Hemorrhage protocol Stop: 08/31/20 05:09 Misoprostol (Misoprostol 200 Mcg Tablet) 800 mcg BC .ONCE PRN PRN Reason: Step 3: Hemorrhage protocol Stop: 08/31/20 05:09 Oxytocin (Oxytocin 10 Unit/Ml Vial) 10 unit IM .ONCE PRN PRN Reason: Step one: If no IV access Stop: 08/31/20 05:09 Sodium Chloride (Sodium Chloride Flush 0.9% 10 Ml Syringe) 10 ml IVP PRN PRN PRN Reason: NEEDED PER PROVIDER ORDERS Sodium Chloride (Sodium Chloride Flush 0.9% 10 Ml Syringe) 10 ml IVP 0100,0900,1700 NICOLE Allergies/Adverse Reactions: Allergies Allergy/AdvReac Type Severity Reaction Status Date / Time azithromycin [From Zithromax] Allergy Respiratory Verified 05/17/20 15:26 codeine Allergy Emesis Verified 05/17/20 15:26 Anes History & Medical History - Anesthetic History Anesthesia Complications: reports: No previous complications Family history of Anesthesia Complications: Denies Family history of Malignant Hyperthermia: Denies - Medical History Cardiovascular: reports: None, Arrhythmia (Tachycardia during .) Pulmonary: reports: None Gastrointestinal: reports: None Urinary: reports: None Neuro: reports: None Musculoskeletal: reports: None, Scoliosis Endocrine/Autoimmune: reports: None Blood Disorders: reports: None Skin: reports: None Smoking Status: Never smoker - Surgical History General: Other - Obstetrical History : 3 Parity: 1 Events: positive: None Complications: positive: None Exam General: Alert, Oriented x3, Cooperative, No acute distress Plan Anesthesia Type: Epidural Consent for Procedure(s) Verified and Reviewed: Yes Code Status: Attempt Resuscitation ASA classification: 2-Mild systemic disease Is this case an emergency?: No
[2020-08-26 13:11] LABS: C. PNEUMONIAE- RESP PCR PANEL NOT DETECTED
--- NOTE | 2020-08-26 18:00 | PROVIDER PROGRESS NOTE ---
Labor Progress Note - Uterine Monitoring Uterine Monitoring Mode: positive: External toco Contraction Frequency (min/apart): 3-4 Contraction Intensity: positive: Moderate Uterine Resting Tone: positive: Soft - Monitoring Monitor Mode: positive: External ultrasound Heart Rate Baseline: 125 Heart Rate Variability: positive: Moderate (6-25 bmp) Accelerations: positive: Present, 15x15 Decelerations: positive: None Strip Review: positive: Category I - Vaginal Exam Dilation (in cm): 3 Effacement (%): 50 Station: -3 Cervical Position: Midposition - Labor Progress Note Labor Progress Note/Additional Text: S: Feeling comfortable with epidural. States she is having slight anxiety and fe eling a little discouraged with the lack of progress. Experiences tachycardia with contractions and states she can tell she is having them because her heart rate seems to increase. She denies dizziness, lightheadedness or nausea. supportive at the bedside. O: BP 124/78, T 36.8, HR 102, O2 100 Pitocin currently at 12mU/mL FHR baseline 125, moderate variability, + accels, no decels Contractions palpate moderate every 3-4 minutes with soft resting tone SVE 3/50/-3, midposition, soft. Vertex. SROM x 13 hours A: 34yo @ 39.3wks gestation by LMP c/w 8.1wk U/S Augmentation of labor FHR Category I GBS neg P: Encouraged increasing pitocin by 2mU/mL every 30 minutes rather than 1mU/mL and titrate per protocol secondary to minimal cervical change x 4 hours. Continuous monitoring Discussed position changes in bed which promote dissent on peanut ball with RN at the bedside and the patient. Maintain epidural for pain management Anticipate . Repeat SVE in 4 hours or sooner PRN
[2020-08-26] MEDS ORDERED: HYDROCORTISONE 1% CREAM 28 GM TUBE PR PRN (23:29)
[2020-08-26] MEDS ORDERED: WITCH HAZEL/GLYCERIN 1 PAD TOP PRN (23:29)
--- NOTE | 2020-08-26 23:38 | DELIVERY NOTE ---
Delivery Note - Labor Labor: positive: Augmented by oxytocin - Delivery Method Delivery Method: positive: Spontaneous vaginal delivery - Presentation Presentation: positive: Vertex, ABELARDO - right occiput anterior - Nuchal Cord Nuchal Cord: positive: None - Amniotic Fluid Description Amniotic Fluid Description: positive: Clear - Episiotomy Type Episiotomy Type: positive: None - Laceration Laceration: positive: 2nd degree, Vaginal - Suture Suture Type: positive: Vicryl Suture Size: positive: 2-0 - Delivery Outcome Delivery Outcome: positive: Livebirth - [place] : positive: Placed in direct skin contact with mother, Bulb syringe, Stimulated, Warmed, [place] used sex: positive: Male - Cord Cord: positive: 3 vessels - Placenta Placenta: positive: Intact, Spontaneous - Estimated Blood Loss Estimated Blood Loss (in cc): 200 - Post Delivery Events Post Delivery Events: positive: No post delivery events - Delivery Comments (Free Text/Narrative) Delivery Comments (Free Text/Narrative): Labor: This 34yo @ 39.3wks gestation by LMP c/w 8.1wk U/S presented to [facility] with c/o contractions and SROM for a moderate amount of clear fluid immediately upon arrival to [facility] unit at 0500 on 08/26/2020. Cervix was 1/50/ballotable, posterior. Vertex confirmed by BSUS. FHR pattern demonstrated Category I pattern with intermittent periods of Category II however it was overall reassuring. Pitocin initiated for labor augmentation with a maximum infusion rate of 17 mU/mL. Epidural placed upon maternal request. Pt progressed to c/c/+2 at 2245. : Normal of viable male on 08/26/2020 @ 2256. No nuchal cord. The was placed on maternal abdomen, stimulated, dried, and placed skin to skin. 's were 9/9 at 1 and 5 min respectively. Pitocin administered via IV for hemostasis. The umbilical cord was allowed to stop pulsating at which time it was doubly clamped by CNM and cut by FOB. 3VC. Cord blood was obtained. Fundal massage and gentle cord traction applied for active management of the third stage. Placenta delivered spontaneously and intact at 2305. EBL 200mL. Fourth stage: Uterine fundus firm and there is no excessive bleeding. The perineum, vagina, and cervix were inspected and noted to have a 2nd degree vaginal laceration which was repaired using a 2-[address]-1 needle, in standard fashion under sterile condition. Vaginal and rectal examination following repair was performed. Tissues well approximated. Family bonding well. Both mother and baby were left in stable condition.
[2020-08-26] MEDS: ACETAMINOPHEN 500 MG TABLET PO SCH (23:59)
[2020-08-27] MEDS: IBUPROFEN 800 MG TABLET PO SCH ×3 (06:33→18:32)
[2020-08-27] MEDS: ACETAMINOPHEN 500 MG TABLET PO SCH ×2 (08:41→17:05)
[2020-08-27] MEDS ORDERED: DOCUSATE SODIUM 100 MG CAPSULE PO SCH (09:00)
--- NOTE | 2020-08-27 11:16 | Discharge Plan ---
Discharge Plan Problem Reviewed?: Yes Disposition: Home, Self Care Condition: Good Diet: Regular Activity Restrictions: No Restrictions Shower Restrictions: No Weight Bearing: Full Weight No Smoking: If you smoke, Please STOP! Call for help. Follow-up with: Trish Shook CNM, ARNP [Provider Admit Priv/Credential] -
--- NOTE | 2020-08-27 11:21 | PROVIDER PROGRESS NOTE ---
Subjective - Subjective Subjective: FINAL PROGRESS NOTE: S: Bonding well with baby. Bleeding decreased and is light. Pain well controlled with oral medications. She is ambulating and urinating without difficulty. Bottle feeding with ease and she bottle fed with her daughter. Baby has been slightly gaggy and spitty but otherwise they seems to be doing great. They are hoping to be discharged home tonight at 24hours . supportive at the bedside. O: BP 119/81, HR 73, RR 20, T 36.5 Heart RRR w/o M/G/R, lungs CTAB, abdomen soft and nontender with fundus firm at U, perineum intact, light lochia rubra. Bilateral LE's mild edema. A: 34yo -->P2 PPD#1 s/p TSVD of viable male 2nd degree perineal laceration intact Bottle feeding P: Reviewed pp self care and warning s/sx. Discussed when to present. Pt has emergency contact information. Advised continuation of PNV while . Encouraged continuation of ibuprofen and tylenol OTC for pain management. F/u with myself in 1 week for routine pp visit or sooner PRN. Pt verbalized understanding and agrees to above plan. She denies further questions or concerns at this time. Objective - Vital Signs/Intake & Output Vital Signs: Vital Signs x48h Temp Pulse Resp BP Pulse Ox 08/27/20 08:00 36.5 C 73 20 119/81 H 100 08/27/20 04:45 36.5 C 97 18 122/78 99 Intake & Output: Intake & Output 08/24/20 08/25/20 08/26/20 08/27/20 23:59 23:59 23:59 23:59 Intake Total 1999 1000 Output Total 1765 1750 Balance 235 -750 - Lab Results Fish Bones: 08/26/20 05:20 Other Labs: Lab Results x24hrs 08/26/20 Range/Units 06:00 Nasal Adenovirus (PCR) NOT DETECTED Nasal B. parapertussis DNA (PCR) NOT DETECTED Nasal Coronavir 229E PCR NOT DETECTED Nasal Coronavir HKU1 PCR NOT DETECTED Nasal Coronavir NL63 PCR NOT DETECTED Nasal Coronavir OC43 PCR NOT DETECTED Nasal Enterovir/Rhinovir PCR NOT DETECTED Nasal Influenza B PCR NOT DETECTED Nasal Influenza A PCR NOT DETECTED Nasal Parainfluen 1 PCR NOT DETECTED Nasal Parainfluen 2 PCR NOT DETECTED Nasal Parainfluen 3 PCR NOT DETECTED Nasal Parainfluen 4 PCR NOT DETECTED Nasal RSV (PCR) NOT DETECTED Nasal B.pertussis DNA PCR NOT DETECTED Nasal C.pneumoniae (PCR) NOT DETECTED [place] Human Metapneumo PCR NOT DETECTED Nasal M.pneumoniae (PCR) NOT DETECTED Nasal SARS-CoV-2 (PCR) NOT DETECTED
--- NOTE | 2020-08-27 11:49 | DISCHARGE SUMMARY ---
Physician: ANDREI Shafer DATE OF ADMISSION: 08/26/2020 DATE OF DISCHARGE: 08/27/2020 DIAGNOSES ON ADMISSION: 1. A 34-year-old G3, P1-0-1-1 at 39.3 weeks gestation. 2. Spontaneous rupture of membranes. 3. Early labor. 4. Group B Streptococcus negative. DIAGNOSES ON DISCHARGE: 1. A 34-year-old G3, P2-0-1-2, status post spontaneous vaginal delivery on 08/26/2020. 2. Normal recovery. HISTORY OF PRESENT ILLNESS: She is a patient of [facility], who presented on 2020 with complaints of contractions and immediately upon arrival, she experienced spontaneous ruptur e of membranes. Cervix was 1 cm dilated, 50% effaced, ballottable, and vertex position. Bedside ult rasound confirmed vertex. Labor was augmented with Pitocin for a maximum infusion rate of 17 milliun its per mL. Epidural placed per maternal request. The patient progressed to spontaneously deliver a viable male on 08/26/2020 at 2256. Apgars were 9 and 9 at 1 and 5 minutes respectively. EBL 200 mL. The patient had a second-degree laceration, which was repaired using a 2-0 Vicryl on a CT1 needle in standard fashion under sterile conditions. She has been doing well in her course. She is ambulating and tolerating a regular diet. She is urinating without difficulty and her lochia is normal. Her pain is well controlled with oral medications. She will be discharged home today on day #1 with instructions to continue ta silvia ibuprofen and Tylenol [id number] as needed for pain management. She intends to follow up with myself at [facility] in 1 week for routine visit. She has been give n precautions to call if she has any worsening fevers, chills, abdominal pain, increased bleeding, or foul-smelling vaginal lochia. TD: 08/27/2020 11:25
[2020-08-27 20:56] VITALS: BP 103/67
--- NOTE | 2020-08-28 00:19 | Labor Flowsheet ---
Labor Flowsheet Datetime Report Generated by CPN: 08/28/2020 00:19 Datetime: 08/27/2020 20:44 VITAL SIGNS NBP Sys/Sandy/Mean (mmHg): 103 : 67 : 74 Pulse: 76 Datetime: 08/27/2020 14:21 Membranes Ruptured Date/Time: 08/26/2020 05:00 Membranes Rupture Method: Spontaneous Amniotic Fluid Color: Clear Amniotic Fluid Amount: Moderate Amniotic Fluid Odor: Normal Datetime: 08/27/2020 08:10 SpO2 (%): 100 Datetime: 08/27/2020 00:36 Stage of : Recovery PAIN Pain Scale: 1 Datetime: 08/27/2020 00:00 Pain Relief Measures: Pain Medication Given (Annotations: Tylenol and Motrin given) Datetime: 08/26/2020 23:33 Pain Presence: None/Denies Datetime: 08/26/2020 23:20 Anesthesia Comments: pump stopped Datetime: 08/26/2020 23:05 Stage 2 Comments: placenta Datetime: 08/26/2020 23:01 LaborFlag: Labor Datetime: 08/26/2020 22:51 STAGE 2 Pushing: Coached on Pushing Pushing Position: Pushing with Contractions Datetime: 08/26/2020 22:45 VAGINAL EXAM Dilatation (cm): 10.0 Effacement (%): 100 Station: 3 Exam by: A. Boone, CNM Vaginal Bleeding: Normal Show Cervix, Position: Anterior COMMUNICATION Communication: Provider at Bedside Datetime: 08/26/2020 22:30 UTERINE ACTIVITY Monitor Mode: External Frequency (min): 3 Quality: Moderate Pattern: Normal: <= 5 Contractions in 10 Minutes Resting Tone (Palpate): Relaxed ASSESSMENT A Monitor Mode: External US FHR Baseline Rate : 115 Variability: Moderate 6-25 bpm Accelerations: 15X15 Decelerations: Variable Category: Category II Datetime: 08/26/2020 22:06 Monitor Interventions for UA: Valle Adjusted Pain Type: Pressure Pain Location: Abdomen Patient Position/Activity: Left Tilt; High Fowlers Hygiene: Underpad Changed Anesthesia Level Check: T9 Datetime: 08/26/2020 21:31 Temperature (C): 37.2 Duration (sec): 60 Pain Coping: Talking Through Contractions Pain Assessment Comments: resting comfortabley MATERNAL ASSESSMENT Level of Consciousness: Alert Headache: Denies Nausea/Vomiting: Denies RUQ Epigastric Pain: Denies Patient Care Comments: juarez cath emptied of 1000 ml yellow urine Datetime: 08/26/2020 20:57 Comments: some early with ? late decels noted Datetime: 08/26/2020 20:32 MEDICATIONS Pitocin (milliunits): Increased to @ 17 Datetime: 08/26/2020 20:31 Pitocin Checklist: At Least 1 Acceleration of 15 bpm x 15 Seconds in 30 Minutes or Adequate Variabi lity; No More than 1 Late Deceleration Occurred in Past 30 Minutes; No More than 2 Variable Decelerat ions > 60 Seconds in Duration and decreasing >60 bpm in 30 minutes; No More than 5 Uterine Contractio ns in 10 Minutes for any 20 Minute Interval; Uterus Palpates Soft between Contractions PATIENT CARE IV/Blood Work: IV Infusing per Order Datetime: 08/26/2020 19:34 Cervix, Consistency: Moderate Breath Sounds, Left: Clear and Equal Breath Sounds, Right: Clear and Equal ANESTHESIA Anesthesia Plans: Epidural Datetime: 08/26/2020 19:09 Provider Notified (Name): CNM Boone Notification Reason: Maternal Vital Sign Change Communication Comments: Notified provider of current temp of 37.4. Order received for 250ml LR bolu s. Datetime: 08/26/2020 17:36 Contraction Comments: monitors off for readjustment - belly band applied Datetime: 08/26/2020 11:32 I/O Interventions: Juarez Cath Inserted Datetime: 08/26/2020 10:25 Epidural Procedure: Test Dose Datetime: 08/26/2020 10:16 Epidural Positioning: Sitting Datetime: 08/26/2020 08:45 Respirations: 20 Temperature Route: Oral Datetime: 08/26/2020 06:30 FHR Baseline Changes: No Baseline Change Datetime: 08/26/2020 05:30 Actions for Decelerations: Side to Side; IV Bolus
== END 2020-08-28 00:05 | disposition home or self-care (01) | DRG 807 ==
LOC: WFO 04:46 → FBP 04:49 → WFO 04:49 → FBP 05:04 → WFO 05:07 → FBP 05:07
PROVIDERS: ADMIT Nurse Practitioner Obstetrics & Gynecology; ATTEND Nurse Practitioner Obstetrics & Gynecology
PROC: 10E0XZZ Delivery of Products of Conception, External Approach (ICD-10-PCS; principal; 2020-08-26)
PROC: 0KQM0ZZ Repair Perineum Muscle, Open Approach (ICD-10-PCS; 2020-08-26)
DX: O99.891 Other specified diseases and conditions complicating pregnancy (principal); Z37.0 Single live birth; O70.1 Second degree perineal laceration during delivery; M41.9 Scoliosis, unspecified; Z3A.39 39 weeks gestation of pregnancy
CPT/HCPCS: 0202U; 85025; 86850; 86900; 86901; A9270; J7120

== ENCOUNTER 2020-10-04 15:56 | Outpatient (CLI) | payer OTHER ==
[2020-10-04 20:21] LABS: BACTERIAL VAGINOSIS DNA NEGATIVE (NEGATIVE); CANDIDA GLABRATA DNA NEGATIVE (NEGATIVE); CANDIDA GROUP DNA NEGATIVE (NEGATIVE); CANDIDA KRUSEI DNA NEGATIVE (NEGATIVE); TRICHOMONAS VAGINALIS DNA NEGATIVE (NEGATIVE)
== END 2020-10-04 23:59 | disposition home or self-care (01) ==
LOC: LAB.R 15:56
PROVIDERS: ATTEND Advanced Practice Midwife
DX: O86.13 Vaginitis following delivery (principal)
CPT/HCPCS: 87661; 87801

== ENCOUNTER 2022-03-19 19:24 | Emergency (ER) | payer OTHER ==
[2022-03-19 19:53] LABS: BILIRUBIN,URINE NEGATIVE (NEGATIVE); GLUCOSE, URINE (UA) NEGATIVE (NEGATIVE); KETONES,URINE (UA) NEGATIVE (NEGATIVE); LEUKOCYTE ESTERASE, URINE NEGATIVE (NEGATIVE); NITRITE,URINE NEGATIVE (NEGATIVE); OCCULT BLOOD,URINE NEGATIVE (NEGATIVE); PROTEIN,URINE NEGATIVE (NEGATIVE); UROBILINOGEN,URINE 0.2 (NORMAL) E.U./dL (NORMAL)
[2022-03-19 19:56] LABS: CLARITY,URINE CLEAR (CLEAR); HCG UR QUAL NEGATIVE
[2022-03-19 19:59] LABS: BASOPHILS % (AUTO) 0.5 %; EOSINOPHILS # (AUTO) 0.1 10^3/uL (0.0-0.7); EOSINOPHILS % (AUTO) 0.6 %; HCT - HEMATOCRIT 41.5 % (37.0-47.0); HGB - HEMOGLOBIN 13.8 g/dL (12.0-16.0); LYMPHOCYTES # (AUTO) 2.9 10^3/uL (1.5-3.5); LYMPHOCYTES % (AUTO) 36.8 %; MEAN CORPUSCULAR HGB CONC 33.3 g/dL (32.0-36.0); MEAN CORPUSCULAR VOLUME 90.2 fL (81.0-99.0); MEAN PLATELET VOLUME 9.4 fL (7.9-10.8); MONOCYTES # (AUTO) 0.7 10^3/uL (0.0-1.0); MONOCYTES % (AUTO) 9.1 %; NEUTROPHILS # (AUTO) 4.1 10^3/uL (1.5-6.6); NEUTROPHILS % (AUTO) 52.7 %; PLT - PLATELET COUNT 237 10^3/uL (130-450); RED CELL DISTRIBUTION WIDTH 13.2 % (12.0-15.0); WHITE BLOOD COUNT 7.8 x10^3/uL (4.8-10.8)
[2022-03-19 20:12] LABS: ALBUMIN 4.2 g/dL (3.2-5.5); ALBUMIN/GLOBULIN RATIO 1.3 (1.0-2.2); BILIRUBIN,TOTAL 0.4 mg/dL (0.2-1.0); CALCIUM 8.9 mg/dL (8.5-10.3); CREATININE 0.8 mg/dL (0.4-1.0); POTASSIUM 3.2 mmol/L (3.5-5.0); TOTAL PROTEIN 7.4 g/dL (6.7-8.2)
--- NOTE | 2022-03-19 23:16 | ED Physician Documentation ---
PD HPI ABD PAIN - Stated complaint Stated Complaint: FEMALE - Chief complaint Chief Complaint: Abd Pain - History obtained from History obtained from: Patient - History of Present Illness Timing - onset: How many weeks ago (1) Timing - details: Gradual onset Pain level now: 7 Quality: Pain Location: LLQ Radiation: Left flank Improved by: Laying still Worsened by: Moving, Palpation Associated symptoms: No: Fever, Nausea, Vomiting, Diarrhea, Constipation Recently seen: Not recently seen - Additional information Additional information: c/o 1 week of left anterior pelvic and LLQ pain radiating up to left flank as well as component of radiation to proximal anterior right thigh. For the past 1- 2 days, the pain has radiated to across upper abdomen/lower chest, predominantly on left. Review of Systems Constitutional: denies: Fever, Chills, Sweats Cardiac: reports: Reviewed and negative Respiratory: reports: Reviewed and negative GI: reports: Abdominal Pain, Nausea. denies: Abdominal Swelling, Vomiting, Constipation, Diarrhea, Hematemesis, Bloody / black stool : denies: Dysuria, Frequency, Now EGA Skin: denies: Rash Musculoskeletal: reports: Reviewed and negative Neurologic: reports: Reviewed and negative PD PAST MEDICAL HISTORY - Past Medical History Cardiovascular: None, Arrhythmia (Tachycardia during .) Respiratory: None Neuro: None Endocrine/Autoimmune: None GI: None POLICEWOMAN: Miscarriage(s) : None HEENT: None Psych: None Musculoskeletal: None, Scoliosis Derm: None - Past Surgical History Past Surgical History: No General: Other - Allergies Allergies/Adverse Reactions: Allergies Allergy/AdvReac Type Severity Reaction Status Date / Time azithromycin [From Zithromax] Allergy Respiratory Verified 03/19/22 19:39 codeine Allergy Emesis Verified 03/19/22 19:39 - Social History Does the pt smoke?: No Smoking Status: Never smoker Does the pt drink ETOH?: No Does the pt have substance abuse?: No - Immunizations Immunizations are current?: Yes - POLST Patient has POLST: No PD ED PE NORMAL - Vitals Vital signs reviewed: Yes - General General: Alert and oriented X 3, No acute distress, Well developed/nourished - HEENT HEENT: Moist mucous membranes - Cardiac Cardiac: RRR, No murmur - Respiratory Respiratory: No respiratory distress, Clear bilaterally - Abdomen Abdomen: Soft, Non distended, Other (RLQ TTP with mild rebound tenderness and rovsing's sign) - Back Back: No CVA TTP - Derm Derm: Normal color, Warm and dry, No rash Results - Vitals Vitals: Vital Signs - 24 hr 03/19/22 03/19/22 03/19/22 19:33 19:39 21:39 Temperature 36.2 C L 36.5 C Heart Rate 112 H 112 H 91 Respiratory 16 16 16 Rate Blood Pressure 159/94 H 159/94 H 144/90 H O2 Saturation 100 100 99 03/20/22 03/20/22 03/20/22 01:00 02:20 02:24 Temperature 36.6 C Heart Rate 88 88 Respiratory 16 16 15 Rate Blood Pressure 138/88 H 118/83 H O2 Saturation 98 100 Oxygen O2 Source Room air - Labs Labs: Laboratory Tests 03/19/22 03/19/22 03/19/22 17:55 17:55 19:41 WBC 7.8 RBC 4.60 Hgb 13.8 Hct 41.5 MCV 90.2 MCH 30.0 MCHC 33.3 RDW 13.2 Plt Count 237 MPV 9.4 Neut # (Auto) 4.1 Lymph # (Auto) 2.9 [place] # (Auto) 0.7 Eos # (Auto) 0.1 Baso # (Auto) 0.0 Absolute Nucleated RBC 0.00 Nucleated RBC % 0.0 Sodium 138 Potassium 3.2 L Chloride 104 Carbon Dioxide 27 Anion Gap 7.0 BUN 16 Creatinine 0.8 Estimated GFR (MDRD) 82 L Glucose 112 H Calcium 8.9 Total Bilirubin 0.4 AST 41 ALT 58 Alkaline Phosphatase 67 Total Protein 7.4 Albumin 4.2 Globulin 3.2 Albumin/Globulin Ratio 1.3 Lipase 32 Urine Color YELLOW Urine Clarity CLEAR Urine pH 6.0 Ur Specific [place] 1.020 Urine Protein NEGATIVE Urine Glucose (UA) NEGATIVE Urine Ketones NEGATIVE Urine Occult Blood NEGATIVE Urine Nitrite NEGATIVE Urine Bilirubin NEGATIVE Urine Urobilinogen 0.2 (NORMAL) Ur Leukocyte Esterase NEGATIVE Ur Microscopic Review NOT INDICATED Urine Culture Comments NOT INDICATED Urine HCG, Qual NEGATIVE - Rads (name of study) CT A/P Radiology: Prelim report reviewed, See rad report PD MEDICAL DECISION MAKING - ED course Complexity details: reviewed results, re-evaluated patient, considered differential, d/w patient ED course: presents with left-sided abdominal c/o x one week but on exam she unexpected but distinct RLQ tenderness with mild rebound (patient is surprised by this; she was unaware of right-sided abdominal pain). Thus CT A/P undertaken along with UA and blood tests. There are no concerning abnormalities on blood tests (mild hypokalemia 3.3 noted), and unremarkable CT A/P (diverticulosis without diverticulitis). Results d/w patient, lack of cause of her symptoms was discussed, return precautions discussed. Departure - Departure Disposition: 01 Home, Self Care Clinical Impression: Pelvic pain in female, Flank pain Condition: Good Instructions: ED Flank Pain Uncertain Cause, ED Pelvic Pain UKO Comments: The results of tonight's tests are unremarkable. This is reassuring, but also means that a cause of your symptoms has not been found at this point. The lack of abnormal findings suggests strongly against a dangerous process and that it is safe and appropriate to discharge you home at this time. Follow up with your primary care provider, return to the ER if worse Discharge Date/Time: 03/20/22 02:25
--- NOTE | 2022-03-20 00:46 | CT Report ---
PROCEDURE: Abdomen/Pelvis W INDICATIONS: RLQ pain CONTRAST: IV CONTRAST: Optiray 320 ml: 100 PO CONTRAST: *NO PO CONTRAST TECHNIQUE: After the administration of intravenous contrast, 5 mm thick sections acquired from the diaphragms to the symphysis. 5 mm thick coronal and sagittal reformats were acquired. For radiation dose reducti on, the following was used: automated exposure control, adjustment of mA and/or kV according to lavonne ent size. COMPARISON: None available at time of dictation. Report from 12/14/2019 CT abdomen pelvis was compared . FINDINGS: Image quality: Excellent. Lung bases: Unremarkable. Heart: Heart is normal in size. ABDOMEN: Liver: No mass lesion. Gallbladder: Within normal limits without calcified gallstones. Biliary ducts: No biliary ductal dilatation. Pancreas: Unremarkable. Spleen: Normal in size. Adrenal Glands: No adrenal nodules. Kidneys and Ureters: No hydronephrosis. Stomach and Bowel: Stomach, small bowel loops, and colon are normal in caliber and wall thickness. N o evidence of appendicitis. There is colonic diverticulosis without acute diverticulitis. Peritoneum:There is a small amount of pelvic free fluid which appears within physiologic limits. No free air. Ventral Wall: No hernia. Abdominal Nodes: No retroperitoneal or mesenteric adenopathy by size criteria. Vessels: Aorta and inferior vena cava are normal in size. PELVIS: Pelvic Organs: Unremarkable. Bladder: Unremarkable. Pelvic Nodes: No enlarged lymph nodes. Miscellaneous: No inguinal hernias are seen. Bones: Visualized osseous structures demonstrate no suspicious focal lesions. IMPRESSION: 1. No definite acute intra-abdominal abnormality. Specifically, no evidence of acute appendicitis. Reviewed by: Marek Thompson MD on 03/20/2022 12:44 AM PDT Approved by: Marek Thompson MD on 03/20/2022 12:44 AM PDT Station ID: [id number]
[2022-03-20 02:25] VITALS: BP 118/83
== END 2022-03-20 02:25 | disposition home or self-care (01) ==
LOC: ED 19:24
DX: R10.32 Left lower quadrant pain (principal); R10.2 Pelvic and perineal pain
CPT/HCPCS: 36415; 74177; 80053; 81003; 81025; 83690; 85025; 99282; 99284; Q9967; 81001; 87086